=== PATIENT | female | born 1965 | race African-American/Black ===

== ENCOUNTER 2018-11-14 06:13 | Day surgery (SDC) | payer OTHER ==
[~2018-11-14] VITALS: Ht 160 cm; Wt 59.0 kg
[2018-11-14 06:42] VITALS: BP 150/88
[2018-11-14 11:55] VITALS: BP 129/69
== END 2018-11-14 11:20 | disposition home or self-care (01) ==
LOC: DS 06:13 → OR 08:30 → DS 08:30 → OR 10:00 → DS 11:20
PROVIDERS: Obstetrics & Gynecology
PROC: 0UDB7ZZ Extraction of Endometrium, Via Natural or Artificial Opening (ICD-10-PCS; principal; 2018-11-14 08:30)
DX: N95.0 Postmenopausal bleeding (principal); D25.9 Leiomyoma of uterus, unspecified; D64.9 Anemia, unspecified
CPT/HCPCS: J1170; J1885; J2405; J2704; J3010; J7120

== ENCOUNTER 2018-12-26 07:11 | Observation (INO) | payer OTHER ==
[~2018-12-26] VITALS: Ht 160 cm; Wt 64.0 kg
[2018-12-26 07:38] VITALS: BP 131/80
[2018-12-26 14:05] VITALS: BP 124/77
[2018-12-26 17:22] VITALS: BP 100/57
[2018-12-26 21:10] VITALS: BP 106/56
[2018-12-27 05:37] VITALS: BP 117/61
[2018-12-27 06:21] LABS: PLATELET COUNT 166 x10^3mcL (130-400)
[2018-12-27 06:33] LABS: RED CELL DISTRIBUTION WIDTH 20.4 % (11.5-14.5)
[2018-12-27 09:05] LABS: BAND NEUTROPHIL 2 % (0-10); BASOPHIL 0 % (0-2); MONOCYTE 13 % (0-7); SEGMENTED NEUTROPHILS 72 % (37-75)
[2018-12-27 09:09] LABS: rbc morphology (normal/abnorm) ABNORMAL (NORMAL)
[2018-12-27 09:10] LABS: PLATELET MORPHOLOGY LARGE PLATELET SEEN; target cell (codocyte) 1+; tear drop cell (dacryocyte) 1+
[2018-12-27 09:45] VITALS: BP 110/67
[2018-12-27 13:03] VITALS: BP 113/68
[2018-12-27 16:30] VITALS: BP 108/61
[2018-12-27 20:30] VITALS: BP 123/61
[2018-12-28 05:41] VITALS: BP 99/51
[2018-12-28 08:33] VITALS: BP 106/67
[2018-12-28 12:19] VITALS: BP 108/65
[2018-12-28 14:22] VITALS: BP 108/65
== END 2018-12-28 15:09 | disposition home or self-care (01) | DRG 519 ==
LOC: MU 07:11 → DU 07:11 → MU 09:00 → DU 11:52
PROVIDERS: ADMIT Obstetrics & Gynecology
PROC: 0UT90ZL Resection of Uterus, Supracervical, Open Approach (ICD-10-PCS; principal; 2018-12-26 09:00)
PROC: 0UT20ZZ Resection of Bilateral Ovaries, Open Approach (ICD-10-PCS; principal; 2018-12-26 09:00)
PROC: 0UT70ZZ Resection of Bilateral Fallopian Tubes, Open Approach (ICD-10-PCS; principal; 2018-12-26 09:00)
DX: D25.9 Leiomyoma of uterus, unspecified (principal); N83.8 Other noninflammatory disorders of ovary, fallopian tube and broad ligament; N92.0 Excessive and frequent menstruation with regular cycle; Z98.51 Tubal ligation status
CPT/HCPCS: G0378; J0330; J0690; J1170; J2270; J2405; J2704; J2710; J2765; J3010; J3490; J7120